=== PATIENT | female | born 1955 | race Caucasian/White ===

== ENCOUNTER 2018-10-04 18:56 | Emergency (ER) | payer BC, MEDICARE ==
[2018-10-04 19:16] VITALS: BP 153/89; PULSE 106
--- NOTE | 2018-10-04 19:44 | EDM.PDOC ---
ED HPI GENERAL MEDICAL PROBLEM - General Chief Complaint: Lower Extremity Injury/Pain Stated Complaint: LEFT LEG PAIN Time Seen by Provider: 10/04/18 19:25 Source of Information: Reports: Patient History Limitations: Reports: No Limitations - History of Present Illness INITIAL COMMENTS - FREE TEXT/NARRATIVE: 63-year-old female with worsening left back and left leg pain for the past several days. It's much more painful when standing. It seemed to worsen after sleeping on a couch for a few nights while on a recent vacation. She has no incontinence. There is a burning and tingling sensation along the outer aspect of the thigh and at times radiates down into the foot. She has a history of an L4-L5 fusion, and is being followed due to a recurrence of her symptoms. She's just hoping for some symptom control so she can make it to work the next 2 days until she has her orthopedic consultation on Friday. Onset: Gradual Duration: Day(s): (Worsening over the last 48 hours) Location: Reports: Lower Extremity, Left Associated Symptoms: Reports: Other (Some difficulty resting, sleeping). Denies : Chest Pain, Cough, Nausea/Vomiting, Weakness Left Leg Pain Score (Numeric/FACES): 10 - Related Data Allergies Allergy/AdvReac Type Severity Reaction Status Date / Time No Known Allergies Allergy Verified 10/04/18 19:08 Home Meds: Home Meds Aspirin [Halfprin] 162 mg PO DAILY 12/17/13 [History] Calcium Carbonate/Vitamin D3 [Calcium 600 + Vit D 400 Softgl] 1 tab PO Q48H [History] MV,Ca,Min/Iron Fum/FA/Vit K [Multi For Her Tablet] 1 tab PO DAILY 12/17/13 [ History] [place]-3/DHA/Epa/Fish Oil [Fish Oil 1,000 mg Softgel] 1,000 unit PO BEDTIME 12/17 [History] Ranitidine [Zantac] 150 mg PO BEDTIME 12/17/13 [History] Sertraline HCl 25 mg PO BEDTIME 12/17/13 [History] Magnesium 250 mg PO DAILY 02/12/17 [History] Lisinopril 10 mg PO DAILY 04/02/17 [History] Diclofenac Sodium [Voltaren] 75 mg PO BIDMEALS 09/08/18 [History] Methocarbamol [Robaxin] 750 mg PO QID PRN 09/08/18 [History] Gabapentin [Neurontin] 300 mg PO BID 30 Days #60 cap 09/14/18 [Rx] Past Medical History HEENT History: Reports: Impaired Vision Cardiovascular History: Reports: Hypertension 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: Musculoskeletal History: Reports: Back Pain, Chronic Neurological History: Reports: None Psychiatric History: Reports: Depression Endocrine/Metabolic History: Reports: Diabetes, Type II - Infectious Disease History Infectious Disease History: Reports: Chicken Pox, Measles, Mumps - Past Surgical History HEENT Surgical History: Reports: Tonsillectomy GI Surgical History: Reports: Cholecystectomy, Colon Female Surgical History: Reports: Hysterectomy Neurological Surgical History: Reports: Lumbar Spine Musculoskeletal Surgical History: Reports: Other (See Below) Other Musculoskeletal Surgeries/Procedures:: lumbar fusion Social & Family History - Family History Family Medical History: Noncontributory - Tobacco Use Smoking Status *Q: Never Smoker - Caffeine Use Caffeine Use: Reports: Coffee - Recreational Drug Use Recreational Drug Use: No Review of Systems - Review of Systems Review Of Systems: See Below Constitutional: Denies: Fever Respiratory: Reports: No Symptoms Cardiovascular: Denies: Chest Pain Genitourinary: Denies: Incontinence Skin: Denies: Rash (No rash over painful area) Neurological: Reports: Paresthesia ED EXAM, GENERAL - Physical Exam Exam: See Below (Left leg) Exam Limited By: No Limitations General Appearance: Alert, No Apparent Distress Respiratory/Chest: No Respiratory Distress Back Exam: Other (She does have fairly significant palpation tenderness along the paralumbar muscles on the left side) Extremities: Other (No straight leg raising radiculopathy of her other leg, mild increased pain with internal and external rotation passively of the left hip. Dorsi and plantar flexion of the left foot is normal in strength.) Course - Vital Signs Last Recorded V/S: Last Vital Signs Temp 98.8 F 10/04/18 19:14 Pulse 106 H 10/04/18 19:14 Resp 16 10/04/18 19:14 BP 153/89 H 10/04/18 19:14 Pulse Ox 99 10/04/18 19:14 - Re-Assessments/Exams Free Text/Narrative Re-Assessment/Exam: 10/04/18 19:42 This patient does have neuropathy-like symptoms correlating with L2 or L3 distribution. She'll be placed on a Medrol Dosepak to be taken as directed, given 6 hydrocodone for extra pain control and told to keep her appointment on Friday as scheduled. Continue with her other medications including gabapentin, however be wary of the acetaminophen present in the Vicodin. Departure - Departure Time of Disposition: 19:56 Disposition: Home, Self-Care 01 Clinical Impression: Lumbar back pain with radiculopathy affecting left lower extremity - Discharge Information Instructions: Lumbosacral Radiculopathy Referrals: Micah Galdamez MD [Primary Care Provider] - Forms: ED Department Discharge Care Plan Goals: Continue your current medications, take the Medrol Dosepak as prescribed and add Vicodin as needed for extra pain control while trying to rest. Keep your appointment on Friday, and return sooner if worsening despite treatment.
== END 2018-10-04 19:56 | disposition home or self-care (01) ==
LOC: JP.ED 18:56
DX: M54.16 Radiculopathy, lumbar region (principal); R20.2 Paresthesia of skin; I10 Essential (primary) hypertension; E11.9 Type 2 diabetes mellitus without complications; F32.9 Major depressive disorder, single episode, unspecified; Z79.82 Long term (current) use of aspirin; Z79.83 Long term (current) use of bisphosphonates; Z79.01 Long term (current) use of anticoagulants; Z79.52 Long term (current) use of systemic steroids; Z79.899 Other long term (current) drug therapy; Z79.891 Long term (current) use of opiate analgesic
CPT/HCPCS: 99283

== ENCOUNTER 2021-03-05 09:22 | Emergency (ER) | payer BC, MEDICARE ==
[2021-03-05 09:32] VITALS: BP 187/103; PULSE 89
[2021-03-05] MEDS ORDERED: fentaNYL 100 MCG/2 ML SDV IM ONE (10:08)
--- NOTE | 2021-03-05 10:14 | EDM.PDOC ---
ED HPI GENERAL MEDICAL PROBLEM - General Chief Complaint: Back Pain or Injury Stated Complaint: BACK PAIN Time Seen by Provider: 03/05/21 10:04 Source of Information: Reports: Patient, RN Notes Reviewed History Limitations: Reports: No Limitations - History of Present Illness INITIAL COMMENTS - FREE TEXT/NARRATIVE: 65-year-old female presents emergency department today with exacerbation of low back pain. She has had a long history of chronic low back pain has had a total of 4 back surgeries SI joint injections which she recently had states did get some help and relief on the right side but the left side has not worked. No loss of bowel or bladder she does have phone call into the surgery center where she has received work plan is to get an epidural injection next round just waiting for an appointment time. In the meantime she is asking for additional pain control she has used ibuprofen which initially worked but now that has not been working as of late. She is having difficulty sitting difficulty sleeping at night because the pain is so severe Lower Back Pain Score (Numeric/FACES): 10 - Related Data Allergies Allergy/AdvReac Type Severity Reaction Status Date / Time No Known Allergies Allergy Verified 03/05/21 09:36 Home Meds: Home Meds Aspirin [Halfprin] 81 mg PO DAILY 12/17/13 [History] Sertraline HCl 25 mg PO BEDTIME 12/17/13 [History] Lisinopril 10 mg PO DAILY 04/02/17 [History] Metoprolol Succinate [Toprol XL 50mg] 50 mg PO DAILY 03/08/20 [History] Nystatin [Mycostatin] 1 applic TOP BID 03/08/20 [History] Multivit-Min/Folic Acid/Vit K1 [Multi For Her 50 Plus Softgel] 1 tab PO DAILY 03/14/20 [History] traZODone HCl [Trazodone HCl] 50 mg PO BEDTIME 04/10/20 [History] Acetaminophen/HYDROcodone [HYDROcodone-Acetaminophen 5-325 MG *] 1 tab PO Q4H PRN #10 each 03/05/21 [Rx] Past Medical History HEENT History: Reports: Impaired Vision 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 right shoulder pain Neurological History: Reports: None Psychiatric History: Reports: Depression Endocrine/Metabolic History: Reports: Diabetes, Type II - Infectious Disease History Infectious Disease History: Reports: Chicken Pox, Measles, Mumps - Past Surgical History Head Surgeries/Procedures: Reports: None HEENT Surgical History: Reports: Tonsillectomy GI Surgical History: Reports: Cholecystectomy, Colon Female Surgical History: Reports: Hysterectomy Neurological Surgical History: Reports: Lumbar Spine Musculoskeletal Surgical History: Reports: Other (See Below) Other Musculoskeletal Surgeries/Procedures:: lumbar fusion Social & Family History - Family History Family Medical History: No Pertinent Family History - Tobacco Use Tobacco Use Status *Q: Never Tobacco User - Caffeine Use Caffeine Use: Reports: None - Recreational Drug Use Recreational Drug Use: No ED ROS GENERAL - Review of Systems Review Of Systems: See Below Constitutional: Reports: No Symptoms Respiratory: Reports: No Symptoms Cardiovascular: Reports: No Symptoms GI/Abdominal: Reports: No Symptoms Musculoskeletal: Reports: Back Pain Neurological: Reports: Headache ED EXAM,LOWER BACK PAIN/INJURY - Physical Exam Exam: See Below Exam Limited By: No Limitations General Appearance: Alert, WD/WN, No Apparent Distress Respiratory/Chest: No Respiratory Distress Neurological: Alert, No Motor/Sensory Deficits Psychiatric: Tearful Course - Vital Signs Last Recorded V/S: Last Vital Signs Temp 97.9 F 03/05/21 09:35 Pulse 89 03/05/21 09:35 Resp 18 03/05/21 09:35 BP 187/103 H 03/05/21 09:35 Pulse Ox 94 L 03/05/21 09:35 - Orders/Labs/Meds Meds: Medications Discontinued Medications Generic Name Dose Route Start Last Admin Trade Name Freq PRN Reason Stop Dose Admin Fentanyl 50 mcg 03/05/21 10:08 Fentanyl 100 Mcg/2 Ml Sdv IM 03/05/21 10:09 ONETIME ONE Departure - Departure Time of Disposition: 10:13 Disposition: Home, Self-Care 01 Condition: Fair Clinical Impression: History of lumbar spinal fusion Low back pain Qualifiers: Chronicity: acute Back pain laterality: bilateral Sciatica presence: without sciatica Qualified Code(s): M54.50 - Low back pain, unspecified - Discharge Information Prescriptions: Acetaminophen/HYDROcodone [HYDROcodone-Acetaminophen 5-325 MG *] 1 tab PO Q4H PRN #10 each PRN Reason: Pain Instructions: Managing Chronic Back Pain Referrals: Micah Galdamez MD [Primary Care Provider] - Additional Instructions: Continue to use ibuprofen for baseline pain control use the hydrocodone for breakthrough pain, please touch base with your surgery center for further evaluation and treatment call return to the emergency department worsening of symptoms Sepsis Event Note (ED) - Evaluation Sepsis Screening Result: No Definite Risk - Focused Exam Vital Signs: Vital Signs Temp Pulse Resp BP Pulse Ox 03/05/21 09:35 97.9 F 89 18 187/103 H 94 L 03/05/21 09:31 97.9 F 89 18 187/103 H 94 L - Assessment/Plan Plan: Assessment Acuity = acute on chronic Site and laterality = low back pain Etiology = unknown Manifestations = none Location of injury = Home Lab values = none Plan Try 1 dose of fentanyl in the emergency department prescription written for hydrocodone 5/325 1 tab p.o. 3 times daily as needed total #10 faxed to [facility] pharmacy she is going to contact the surgery center and her surgeon for further evaluation and treatment This note was dictated using [employer] voice recognition software please call with any questions on syntax or grammar.
== END 2021-03-05 10:29 | disposition home or self-care (01) ==
LOC: JP.ED 09:22
DX: M54.50 Low back pain, unspecified (principal); E11.9 Type 2 diabetes mellitus without complications; I10 Essential (primary) hypertension; Z79.82 Long term (current) use of aspirin; Z79.899 Other long term (current) drug therapy; Z98.1 Arthrodesis status
CPT/HCPCS: 96372; 99283; J3010

== ENCOUNTER 2021-03-24 19:13 | Emergency (ER) | payer BC, MEDICARE ==
[2021-03-24 19:38] VITALS: BP 159/74; PULSE 110
[2021-03-24 20:20] LABS: CORONAVIRUS COVID-19 NAA POSITIVE (NEGATIVE)
== END 2021-03-24 21:07 | disposition home or self-care (01) ==
LOC: JP.ED 19:13
DX: U07.1 COVID-19 (principal); F41.9 Anxiety disorder, unspecified
CPT/HCPCS: 0241U; 36415; 71045; 71045-26; 80053; 82728; 83605; 83615; 84145; 84484; 85025; 85379; 86140; 99282; 99285-25

== ENCOUNTER 2021-07-11 08:52 | Emergency (ER) | payer BC, MEDICARE ==
[2021-07-11 09:04] VITALS: PULSE 105
== END 2021-07-11 11:27 | disposition home or self-care (01) ==
LOC: JP.ED 08:52
DX: R42 Dizziness and giddiness (principal); E11.9 Type 2 diabetes mellitus without complications; I10 Essential (primary) hypertension; Z79.82 Long term (current) use of aspirin; Z79.899 Other long term (current) drug therapy
CPT/HCPCS: 70450; 99282; 99283-25

== ENCOUNTER 2023-01-20 06:42 | Day surgery (SDC) | payer BC, MEDICARE ==
[2023-01-20] MEDS ORDERED: Bupivacaine 0.5% 30 ML SDV ONE ×2 (06:47→07:30)
[2023-01-20 07:08] LABS: HEMATOCRIT 46.2 % (34.3-46.0); HEMOGLOBIN 15.6 g/dL (11.2-15.5); MEAN CORPUSCULAR HEMOGLOBIN 31.7 pg (31.6-35.5); MEAN CORPUSCULAR HGB CONC 33.8 g/dL (31.6-35.5); MEAN CORPUSCULAR VOLUME 93.9 fL (81.4-99.0); RED BLOOD CELL COUNT 4.92 M/uL (3.77-5.24); WHITE BLOOD CELL COUNT,WBC 13.2 K/uL (3.2-11.0)
[2023-01-20 07:26] LABS: A/G RATIO 0.9 (1.2-2.2); ALANINE AMINOTRANSFERASE,ALT 17 U/L (12-78); ALBUMIN 3.7 g/dL (3.4-5.0); ALKALINE PHOSPHATASE 108 U/L (46-116); ANION GAP 8.7 mmol/L (5.0-14.0); ASPARTATE AMNIOTRANSFERASE,AST 31 U/L (15-37); BILIRUBIN TOTAL 0.4 mg/dL (0.2-1.0); BLOOD UREA NITROGEN,BUN 17 mg/dL (7-18); CALCIUM 9.1 mg/dL (8.5-10.1); CARBON DIOXIDE,CO2 30 mmol/L (21-32); CHLORIDE,CL 101 mmol/L (100-108); CREATININE 0.9 mg/dL (0.6-1.0); EST CRCL DRUG DOSING (CG) 50.94 mL/min; ESTIMATED GFR 69 mL/min (>60); GLUCOSE RANDOM 127 mg/dL (74-106); POTASSIUM,K 5.1 mmol/L (3.6-5.2); PROTEIN TOTAL,TP 7.9 g/dL (6.4-8.2); SODIUM,NA 140 mmol/L (140-148)
[2023-01-20] MEDS ORDERED: Nozin Nasal Sanitizer NASBOTH ONE (07:30)
[2023-01-20] MEDS ORDERED: Lactated Ringers 1,000 ML IV SCH (07:30)
[2023-01-20] MEDS ORDERED: Propofol 200 MG/20 ML SDV ONE (07:33)
[2023-01-20] MEDS ORDERED: fentaNYL 100 MCG/2 ML SDV ONE (07:33)
[2023-01-20] MEDS ORDERED: Midazolam 1 MG/ML 2 ML SDV ONE (07:33)
[2023-01-20] MEDS ORDERED: ceFAZolin 2 GM in Sodium Chloride 0.9% 50 ML IV ONE (08:15)
[2023-01-20] MEDS ORDERED: fentaNYL 250 MCG/5 ML SDV ONE (08:48)
[2023-01-20] MEDS ORDERED: Succinylcholine 200 MG/10 ML MDV ONE (11:08)
[2023-01-20] MEDS ORDERED: Rocuronium 50 MG/5 ML Vial ONE (11:08)
[2023-01-20] MEDS ORDERED: Glycopyrrolate 0.2 MG/ML 5 ML MDV ONE (11:08)
[2023-01-20] MEDS ORDERED: Neostigmine Methylsulfate 1 MG/ML 5 ML Syringe ONE (11:08)
[2023-01-20] MEDS ORDERED: Ondansetron 4 MG/2 ML SDV ONE (11:08)
[2023-01-20] MEDS ORDERED: Dexamethasone 4 MG/ML SDV ONE (11:08)
[2023-01-20] MEDS ORDERED: Acetaminophen/oxyCODONE 325-5 MG Tab PO PRN (11:57)
[2023-01-20 12:05] VITALS: BP 137/54; PULSE 88
== END 2023-01-20 13:00 | disposition home or self-care (01) ==
LOC: JP.SDS 06:42
PROVIDERS: ATTEND Specialist
DX: M75.101 Unspecified rotator cuff tear or rupture of right shoulder, not specified as traumatic (principal); S46.111A Strain of muscle, fascia and tendon of long head of biceps, right arm, initial encounter; I12.9 Hypertensive chronic kidney disease with stage 1 through stage 4 chronic kidney disease, or unspecified chronic kidney disease; E11.22 Type 2 diabetes mellitus with diabetic chronic kidney disease; N18.9 Chronic kidney disease, unspecified; G47.33 Obstructive sleep apnea (adult) (pediatric); Z79.899 Other long term (current) drug therapy
CPT/HCPCS: 0055T; 23405; 29822; 36415; 80053; 82947; 85027; A9270; C1713; J0330; J0690; J1100; J2250; J2405; J2704; J2710; J3010; J3490; J7120

== ENCOUNTER 2023-08-25 10:07 | Emergency (ER) | payer BC, MEDICARE ==
[2023-08-25 10:26] VITALS: BP 156/84; PULSE 87
[2023-08-25 11:28] LABS: BASOPHILS PERCENT AUTO 0.2 % (0.1-1.3); EOSINOPHILS ABSOLUTE AUTO 0.03 K/uL (0.00-0.40); EOSINOPHILS PERCENT AUTO 0.3 % (0.0-5.4); HEMATOCRIT 41.2 % (34.3-46.0); HEMOGLOBIN 14.4 g/dL (11.2-15.5); IMMATURE GRAN ABSOLUTE AUTO 0.04 K/uL (0.00-0.23); IMMATURE GRAN PERCENT AUTO 0.4 % (0.0-0.7); LYMPHOCYTES ABSOLUTE AUTO 1.23 K/uL (0.8-3.3); LYMPHOCYTES PERCENT AUTO 12.1 % (11.4-47.7); MEAN CORPUSCULAR HEMOGLOBIN 32.3 pg (31.6-35.5); MEAN CORPUSCULAR VOLUME 92.4 fL (81.4-99.0); MONOCYTES ABSOLUTE AUTO 0.87 K/uL (0.20-0.90); MONOCYTES PERCENT AUTO 8.5 % (3.3-12.6); NEUTROPHILS ABSOLUTE AUTO 7.99 K/uL (1.0-7.6); NEUTROPHILS PERCENT AUTO 78.5 % (40.0-78.1); PLATELET COUNT,PLT 279 K/uL (130-375); RED BLOOD CELL COUNT 4.46 M/uL (3.77-5.24); WHITE BLOOD CELL COUNT,WBC 10.2 K/uL (3.2-11.0)
[2023-08-25 11:42] LABS: BASOPHILS ABSOLUTE AUTO 0.02 K/uL (0.00-0.10)
[2023-08-25 11:59] LABS: A/G RATIO 0.9 (1.2-2.2); ALANINE AMINOTRANSFERASE,ALT 12 U/L (12-78); ALBUMIN 3.5 g/dL (3.4-5.0); ALKALINE PHOSPHATASE 110 U/L (46-116); ASPARTATE AMNIOTRANSFERASE,AST 14 U/L (15-37); BILIRUBIN TOTAL 0.3 mg/dL (0.2-1.0); BLOOD UREA NITROGEN,BUN 27 mg/dL (7-18); CALCIUM 9.8 mg/dL (8.5-10.1); CARBON DIOXIDE,CO2 30 mmol/L (21-32); CHLORIDE,CL 102 mmol/L (100-108); CREATININE 1.1 mg/dL (0.6-1.0); EST CRCL DRUG DOSING (CG) 41.09 mL/min; ESTIMATED GFR 54 mL/min (>60); GLUCOSE RANDOM 119 mg/dL (74-106); POTASSIUM,K 4.1 mmol/L (3.6-5.2); PROTEIN TOTAL,TP 7.5 g/dL (6.4-8.2); SODIUM,NA 138 mmol/L (140-148); TROPONIN I HIGH SENSITIVITY 4.3 pg/mL (<=60.3)
[2023-08-25 12:01] LABS: ANION GAP 10.1 mmol/L (5.0-14.0)
== END 2023-08-25 12:53 | disposition home or self-care (01) ==
LOC: JP.ED 10:07
DX: R42 Dizziness and giddiness (principal); I10 Essential (primary) hypertension; E11.9 Type 2 diabetes mellitus without complications; Z79.82 Long term (current) use of aspirin; Z79.899 Other long term (current) drug therapy; Z90.49 Acquired absence of other specified parts of digestive tract; Z90.710 Acquired absence of both cervix and uterus
CPT/HCPCS: 36415; 80053; 83605; 84484; 85025; 93005; 93010; 99284

== ENCOUNTER 2025-02-18 07:26 | Day surgery (SDC) | payer BC, MEDICARE ==
[2025-02-18] MEDS: Lactated Ringers 1,000 ML IV SCH (07:46)
[2025-02-18] MEDS ORDERED: Lactated Ringers 1,000 ML IV SCH (08:15)
[2025-02-18] MEDS ORDERED: Propofol 200 MG/20 ML SDV ONE ×2 (08:17→09:34)
[2025-02-18] MEDS ORDERED: fentaNYL 100 MCG/2 ML SDV ONE (08:17)
[2025-02-18 10:07] VITALS: PULSE 84
[2025-02-18 10:50] VITALS: BP 132/76
== END 2025-02-18 11:15 | disposition home or self-care (01) ==
LOC: JP.SDS 07:26
PROVIDERS: ATTEND Family Medicine
DX: Z12.11 Encounter for screening for malignant neoplasm of colon (principal); D12.5 Benign neoplasm of sigmoid colon; K57.30 Diverticulosis of large intestine without perforation or abscess without bleeding; I10 Essential (primary) hypertension; K21.9 Gastro-esophageal reflux disease without esophagitis; E11.9 Type 2 diabetes mellitus without complications; Z79.899 Other long term (current) drug therapy
CPT/HCPCS: 00811; 45385; J2704; J3010; J7120; 88305; 88342